=== PATIENT | female | born 1990 | race Caucasian/White ===

== ENCOUNTER 2018-01-20 00:27 | Emergency (ER) | payer SELFPAY ==
[~2018-01-20] VITALS: Ht 165.1 cm; Wt 52.2 kg
--- NOTE | 2018-01-20 01:00 | NUR ---
: TRACY AT BEDSIDE EVALUATING /EXAMINED PATIENT .
--- NOTE | 2018-01-20 01:10 | NUR ---
PATIENT IN BED AAOX3/MAEX4,NO RESPIRATORY DISTRESS NOTED . PATIENT VERBALIZED PAIN WHEN SHE URINATES .
[2018-01-20] MEDS ORDERED: AZITHROMYCIN 250 MG TABLET PO ONE (01:15)
--- NOTE | 2018-01-20 01:15 | NUR ---
PER PATIENT SHE JUST WANTS 1 TIME DOSE OF ZITHROMAX AND SHE WILL FOLLOW UP TREATMENT WITH HER PRIMARY MD .
[2018-01-20] MEDS ORDERED: AZITHROMYCIN 250 MG TABLET ONE (01:20)
[2018-01-20 01:38] VITALS: BP 96/57
--- NOTE | 2018-01-20 01:39 | NUR ---
Patient discharged to home in stable conditon. Written and verbal after care instructions given. Patient verbalizes understanding of instructions.NO RESPIRATORY DISTRESS .AMBULATORY .
== END 2018-01-20 01:40 | disposition home or self-care (01) ==
LOC: ER 00:33
DX: R30.0 Dysuria (principal)
CPT/HCPCS: 99282; A4663; Q0144